=== PATIENT | female | born 1980 | race African-American/Black ===

== ENCOUNTER 2017-05-05 15:29 | Emergency (ER) | payer MEDICAID ==
[~2017-05-05] VITALS: Ht 165.1 cm; Wt 59.0 kg
[2017-05-05] MEDS ORDERED: Acetaminophen 500mg (ES) tab ORAL ONE (16:15)
[2017-05-05] MEDS ORDERED: ACETAMINOPHEN-1 EAC1 ORAL (17:47)
[2017-05-05] MEDS ORDERED: IBUPROFEN600 MG ORAL (17:47)
[2017-05-05 18:06] VITALS: BP 129/80
[2017-05-05 18:13] VITALS: BP 129/80
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
--- NOTE | 2017-05-05 22:57 | Diagnostic Imaging Report ---
Indication: Pain Technique: CT maxillofacial was performed utilizing automated exposure control without intravenous contrast material. Axial and coronal images were generated. CT dose: Total DLP 608 mGycm; CTDI vol 28.3 mGy Comparison: None Findings: There is moderate left periorbital soft tissue swelling, most pronounced infraorbitally. There is a nondisplaced right nasal fracture of uncertain chronicity. No additional fracture is identified. The bony orbits and mandible are intact. The orbits and globes are unremarkable. Paranasal sinuses and mastoid air cells are clear. The nasal septum is midline. Visualized intracranial compartment is unremarkable. Impression: Mild to moderate left periorbital soft tissue swelling. Nondisplaced right nasal fracture of uncertain chronicity. This corresponds with the statrad preliminary report. The CT scanner at [facility] is accredited by the [employer] and the scans are performed using protocols designed to limit radiation exposure to as low as reasonably achievable to attain images of sufficient resolution adequate for diagnostic evaluation.
== END 2017-05-05 18:25 | disposition home or self-care (01) ==
LOC: EDBD 15:29 → EMR 17:51
DX: S00.83XA Contusion of other part of head, initial encounter (principal); S00.03XA Contusion of scalp, initial encounter; S02.2XXA Fracture of nasal bones, initial encounter for closed fracture; Y04.2XXA Assault by strike against or bumped into by another person, initial encounter; Y92.9 Unspecified place or not applicable
CPT/HCPCS: 70450; 70486; 99284

== ENCOUNTER 2017-10-02 15:10 | Emergency (ER) | payer MEDICAID ==
[~2017-10-02] VITALS: Ht 182.9 cm; Wt 68.0 kg
[~2017-10-02 15:10] MED LIST: ACETAMINOPHEN-1 EAC1 ORAL; IBUPROFEN600 MG ORAL
[2017-10-02 15:15] VITALS: BP 140/91
[2017-10-02] MEDS ORDERED: Morphine Sulfate 4mg/ml Inj IVP ONE ×2 (15:30→20:15)
[2017-10-02] MEDS ORDERED: Isovue-300 100ml vial INJ PRN (15:30)
[2017-10-02 16:04] LABS: EOSINOPHILS % (AUTO) 0.8 % (0.0-3.0); HEMATOCRIT 32.5 % (37.0-47.0); HEMOGLOBIN 9.2 G/DL (12.0-16.0); LYMPHOCYTES % (AUTO) 20.7 % (20.0-45.0); MEAN CORPUSCULAR VOLUME 66 FL (80-99); MONOCYTES % (AUTO) 8.6 % (1.0-10.0); NEUTROPHILS % (AUTO) 68.9 % (45.0-75.0); PLATELET COUNT 357 K/UL (150-450); RED BLOOD COUNT 4.92 M/UL (4.20-5.40); WHITE BLOOD COUNT 9.1 K/UL (4.8-10.8)
[2017-10-02 16:09] LABS: ANION GAP 10 mmol/L (5-15); BLOOD UREA NITROGEN 7 mg/dL (7-18); CARBON DIOXIDE 25 MMOL/L (21-32); CHLORIDE 104 MMOL/L (98-107); CREATININE 0.8 MG/DL (0.55-1.30); POTASSIUM 3.4 MMOL/L (3.5-5.1); SODIUM 139 MMOL/L (136-145)
[2017-10-02 16:14] LABS: ALANINE AMINOTRANSFERASE 18 U/L (12-78); ALBUMIN/GLOBULIN RATIO 0.9 (1.0-2.7); ALKALINE PHOSPHATASE 71 U/L (46-116); ASPARTATE AMINO TRANSFERASE 15 U/L (15-37); BILIRUBIN,TOTAL 0.5 MG/DL (0.2-1.0)
--- NOTE | 2017-10-02 16:26 | Emergency Room Report ---
History of Present Illness General Chief Complaint: Abdominal Pain Source: Patient, EMS Present Illness HPI 37-year-old female with no sig pmhx p/w abdominal pain for 6 months also worse in the last 3 days She states that she normally gets this abdominal pain every time she gets her period and states that her doctor will not fill her prescription of Motrin Patient localized to mid abdomen, non radiating, sharp in nature, intermittent. No relieving or exacerbating factors Denies nvd. Denies fever, chills. No dysuria no hematuria no abnormal vaginal discharge. Heavy vaginal bleeding Allergies: Coded Allergies: No Known Allergies (Unverified , 05/05/17) Patient History Past Medical History: see triage record Past Surgical History: none Pertinent Family History: none Last Menstrual Period: Unk Reviewed Nursing Documentation: PMH: Agreed; PSxH: Agreed Review of Systems All Other Systems: negative except mentioned in HPI Physical Exam Vital Signs Date Time Temp Pulse Resp B/P (MAP) Pulse Ox O2 Delivery O2 Flow Rate FiO2 10/02/17 15:05 98.3 100 22 140/91 99 Room Air 98.2 Sp02 EP Interpretation: reviewed, normal General Appearance: alert, GCS 15, non-toxic, mild distress Head: normocephalic, atraumatic Eyes: bilateral eye normal inspection, bilateral eye PERRL, bilateral eye EOMI ENT: normal ENT inspection, normal pharynx, normal voice, moist mucus membranes Neck: normal inspection, full range of motion, supple Respiratory: normal inspection, lungs clear, normal breath sounds, no respiratory distress, no retraction, no wheezing, speaking full sentences, chest symmetrical Cardiovascular #1: normal inspection, regular rate, rhythm, no edema, normal capillary refill Cardiovascular #2: 2+ radial (R), 2+ radial (L) Gastrointestinal: normal bowel sounds, soft, no organomegaly, no peritonitis, non-distended, no guarding, no rebound, other - generalized periumbilical tenderness Musculoskeletal: normal inspection, back normal, normal range of motion, non- tender Neurologic: normal inspection, alert, oriented x3, responsive, motor strength/ tone normal, sensory intact, normal gait, speech normal Psychiatric: anxious Skin: normal inspection, normal color, no rash, warm/dry, well hydrated, normal turgor Medical Decision Making Diagnostic Impression: Primary Impression: Abdominal pain Additional Impressions: Ovarian mass, right Trichomoniasis Intractable pain ER Course 37-year-old female with abdominal pain Differential Diagnosis: Gastritis, gastroenteritis, cholecystitis, appendicitis, diverticulitis,cardiac , UTI/pyelo, ovarian cyst rupture Plan: Basic labs, ua, pain control, IVF CT abdopelvis ER course: Patient has remained HD stable during ED stay. Given fluid morphine and toradol now feels much better ambulatory CT showing complex R ovarian cystic structure, ?cysts vs. neoplasm. unlikely TOA given tubes normal. US performed - good blood flow and no torsion pt has been receiving pain meds in ED +flagyl for trichomoniasis continues to have pain Dr Villagomez: States that this is likely endometrioma, no emergent surgical intervention is necessary at this time I discussed with patient, she states she continues to have pain, her abdomen is soft and not peritoneal. states she has dealt with the pain at home for 3 days and cannot stand it anymore. Will admit for furhter pain management and OBGYN consult. Disposition: Patient will be [facility] due to insurance purposes, d/w Dr Paredes who has accepted patient for transfer Please note that this Emergency Department Report was dictated using [employer] cut engraver technology software, occasionally this can lead to erroneous entry secondary to interpretation by the dictation equipment Laboratory Tests Test 10/02/17 15:40 10/02/17 18:25 White Blood Count 9.1 K/UL (4.8-10.8) Red Blood Count 4.92 M/UL (4.20-5.40) Hemoglobin 9.2 G/DL (12.0-16.0) L Hematocrit 32.5 % (37.0-47.0) L Mean Corpuscular Volume 66 FL (80-99) L Mean Corpuscular Hemoglobin 18.8 PG (27.0-31.0) L Mean Corpuscular Hemoglobin Concent 28.4 G/DL (32.0-36.0) L Red Cell Distribution Width 18.0 % (11.6-14.8) H Platelet Count 357 K/UL (150-450) Mean Platelet Volume 7.1 FL (6.5-10.1) Neutrophils (%) (Auto) 68.9 % (45.0-75.0) Lymphocytes (%) (Auto) 20.7 % (20.0-45.0) Monocytes (%) (Auto) 8.6 % (1.0-10.0) Eosinophils (%) (Auto) 0.8 % (0.0-3.0) Basophils (%) (Auto) 1.0 % (0.0-2.0) Sodium Level 139 MMOL/L (136-145) Potassium Level 3.4 MMOL/L (3.5-5.1) L Chloride Level 104 MMOL/L (98-107) Carbon Dioxide Level 25 MMOL/L (21-32) Anion Gap 10 mmol/L (5-15) Blood Urea Nitrogen 7 mg/dL (7-18) Creatinine 0.8 MG/DL (0.55-1.30) Estimate Glomerular Filtration Rate > 60 mL/min (>60) Glucose Level 95 MG/DL (74-106) Calcium Level 9.0 MG/DL (8.5-10.1) Total Bilirubin 0.5 MG/DL (0.2-1.0) Aspartate Amino Transferase (AST) 15 U/L (15-37) Alanine Aminotransferase (ALT) 18 U/L (12-78) Alkaline Phosphatase 71 U/L (46-116) Total Protein 8.5 G/DL (6.4-8.2) H Albumin 4.0 G/DL (3.4-5.0) Globulin 4.5 g/dL Albumin/Globulin Ratio 0.9 (1.0-2.7) L Lipase 93 U/L (73-393) Human Chorionic Gonadotropin, Quant < 1 mIU/mL (1-6) L Urine Color Pending Urine Appearance Pending Urine pH Pending Urine Specific [place] Pending Urine Protein Pending Urine Glucose (UA) Pending Urine Ketones Pending Urine Occult Blood Pending Urine Nitrite Pending Urine Bilirubin Pending Urine Urobilinogen Pending Urine Leukocyte Esterase Pending Urine HCG, Qualitative Pending Last Vital Signs Date Time Temp Pulse Resp B/P (MAP) Pulse Ox O2 Delivery O2 Flow Rate FiO2 10/02/17 15:47 98.3 10/02/17 15:15 22 140/91 99 Room Air 10/02/17 15:05 100 Disposition: XFER SHT-TRM HOSP Condition: Serious Scripts Metronidazole* (FLAGYL*) 500 Mg Tablet 500 MG ORAL BID for 7 Days, #14 TAB Prov: Candelaria Mojica M.D. 10/02/17 Referrals: NON PHYSICIAN (PCP) Patient Instructions: Abdominal Pain, Adult Candelaria Mojica M.D. Oct 02, 2017 16:26
[2017-10-02] MEDS ORDERED: Ketorolac 60mg Inj IV ONE (17:15)
[2017-10-02] MEDS ORDERED: Ketorolac 30mg Inj ONE (17:17)
--- NOTE | 2017-10-02 17:17 | Diagnostic Imaging Report ---
Clinical Indication: Abdominal pain x3 days Technique: No oral contrast utilized, per emergency room physician request IV administration nonionic contrast. Venous phase spiral acquisition obtained through the abdomen and pelvis. Multiplanar reconstructions were generated. Total dose length product 613.8 mGycm. CTDIvol(s) 11.66 mGy. Dose reduction achieved using automated exposure control Comparison: none Findings: Complex cystic mass is seen posterior to the uterus to the right of midline. This measures 7 x 5.3 x 5 cm. The left ovary is not definitely demonstrated. Small amount of free intraperitoneal fluid is evident. The liver, gallbladder, bile ducts, pancreas, spleen, adrenals kidneys are unremarkable. No retroperitoneal or mesenteric mass or adenopathy. The bladder is unremarkable. There I a few small uterine fundal fibroids. The appendix is normal. No evidence of diverticulosis or diverticulitis. No small bowel distention. No free intraperitoneal air. The included lung bases are clear. The bones are unremarkable. Impression: 7 x 5.3 x 5 cm complex cystic mass posterior to the uterus to the right of midline. This is probably a right ovarian lesion. Findings worrisome for complex cystic ovarian neoplasm. Tubo-ovarian abscess deemed less likely, as no definite tubular fluid is demonstrated. Recommend ultrasound correlation Small uterine fibroids Nonvisualized left ovary. Reported history of left oophorectomy, per referring physician Small amount of ascites fluid Findings discussed by phone with Dr. Mojica in the emergency room at the time of interpretation The CT scanner at [facility] is accredited by the [employer] and the scans are performed using protocols designed to limit radiation exposure to as low as reasonably achievable to attain images of sufficient resolution adequate for diagnostic evaluation.
[2017-10-02 18:34] VITALS: BP 113/63
[2017-10-02 18:35] LABS: APPEARANCE,URINE CLEAR; BILIRUBIN, URINE NEGATIVE (NEGATIVE); COLOR,URINE PALE YELLOW; GLUCOSE, URINE (UA) NEGATIVE (NEGATIVE); KETONES,URINE NEGATIVE (NEGATIVE); LEUKOCYTE ESTERASE ,URINE 1+ (NEGATIVE); NITRITE,URINE NEGATIVE (NEGATIVE); PH,URINE 5 (4.5-8.0); PROTEIN,URINE NEGATIVE (NEGATIVE); UROBILINOGEN,URINE NORMAL MG/DL (0.0-1.0)
[2017-10-02] MEDS ORDERED: METRONIDAZOLE500 MG ORAL (18:53)
[2017-10-02] MEDS ORDERED: metroNIDAZOLE 500mg tab ORAL ONE (19:00)
[2017-10-02] MEDS ORDERED: FLUTICASONE PRO30 GM TOPIC (19:52)
[2017-10-02 20:10] VITALS: BP 113/63
[2017-10-02 21:10] VITALS: BP 118/65
[2017-10-02 22:10] VITALS: BP 105/66
[2017-10-02 22:40] VITALS: BP 105/66
--- NOTE | 2017-10-03 14:38 | Diagnostic Imaging Report ---
Indication: Pelvic pain, vaginal bleeding, negative test Technique: Transabdominal images of the pelvis only. Transabdominal images not performed, due to patient preference Comparison: CT scan earlier the same day Findings: Uterus measures 9.7 cm length by 6.9 cm AP. Endometrium measures 22 mm thick. No myometrial abnormality. The right ovary is enlarged, demonstrates cysts measuring up to 25 mm. The ovary overall measures 8 cm in length. It demonstrates normal blood flow. The left ovary is not demonstrated, reportedly surgically absent Small amount of free cul-de-sac fluid is noted. Impression: Enlarged right ovary, measuring 8 cm in length, with multiple cysts. No definite findings to suggest abscess.. Possibility of complex cystic mass should be considered. Given the presence of normal blood flow, torsion is less likely but not completely excludable. Correlation with clinical findings is recommended Small amount of free pelvic fluid, also described on recent CT This agrees with the preliminary interpretation provided overnight by [facility].
== END 2017-10-02 22:40 | disposition short-term general hospital (02) ==
LOC: EDBD 15:10 → EDSEX 15:10 → EMR 15:41
DX: R10.9 Unspecified abdominal pain (principal); N83.9 Noninflammatory disorder of ovary, fallopian tube and broad ligament, unspecified; A59.9 Trichomoniasis, unspecified; D25.9 Leiomyoma of uterus, unspecified; Z90.721 Acquired absence of ovaries, unilateral
CPT/HCPCS: 36415; 74177; 76856; 80053; 81003; 81025; 83690; 84702; 85025; 87086; 96365; 96374; 96375; 99285; J1885; J2270; J2405; Q9967; S0028; 76857